=== PATIENT | male | born 1975 | race Caucasian/White ===

== ENCOUNTER 2016-10-03 12:12 | Outpatient (CLI) | payer BC ==
[2016-10-03 13:56] LABS: BASOPHILS % 0.5 (0.0-1.5); EOSINOPHILS % 2.5 % (0.0-6.8); MEAN CORPUSCULAR HEMOGLOBIN 31.6 pg (28.0-34.0); MONOCYTES # 0.3 # k/uL (0.0-0.9); MONOCYTES % 4.9 % (0.0-11.0); NEUTROPHILS # 4.1 # k/uL (1.4-7.7)
[2016-10-03 13:57] LABS: APPEARANCE,URINE Clear (CLEAR); COLOR,URINE Yellow (YELLOW); OCCULT BLOOD,URINE Negative (NEGATIVE); UROBILINOGEN URINE 0.2 Eu (0.2-1.0)
[2016-10-03 14:21] LABS: eGFR (African) > 60; eGFR (Non-African) > 60
[2016-10-04 01:10] LABS: TESTOSTERONE TOTAL 297.7 ng/dL (249.0-836.0)
--- NOTE | 2016-10-04 06:56 | Diagnostic Imaging Report ---
[facility] [id number] [address] ~ ~ ~ ~ Report Submission Date: Oct 03, 2016 3:12:27 PM [employer] Patient ~ Study Name: VIKTOR HERNANDEZ ~ Date: Oct 03, 2016 1:17:36 PM [employer] ~ Modality Type: US Gender: M ~ Description: US EXAM ABD BACK WALL : 77 ~ Institution: [facility] Physician JEFFERSON LLOYD ~ ~ ~ Ultrasound renal HISTORY: ~ Right flank pain, urgency, and dysuria FINDINGS: ~ The right kidney measures 10.2 x 5.6 x 6.3 cm and the left kidney 11.2 x 6.4 x 5.7 cm. ~Renal echogenicity and morphology is normal bilaterally. ~The urinary bladder exhibits normal contour and wall thickness. ~A small postvoid bladder residual is observed. ~ IMPRESSION: ~ Small postvoid bladder residual. ~Otherwise normal exam. ~ Electronically signed on Oct 03, 2016 3:12:27 PM [employer] by: Dannie HUA
--- NOTE | 2016-10-06 10:01 | CONSULTATION REPORT ---
CONSULTING PHYSICIAN: Frank Lees MD REASON FOR CONSULT: Cordell Hutson is a 40-year-old white male with an interesting and long history. It started 15 years ago when he developed a fever, rash, and joint and muscle pain. He was seen by Dr. Dave Kyle and was told he had Lyme disease and was treated. About 10 years ago, he developed a variety of symptoms consisting of fatigue, flu-like symptoms, muscle pain, nerve pain, and constant headaches. On one occasion, he was found to have an equivocal Pyle antibody of around 110. The reference, I believe, on that lab was between 100 and 200. MAGGY was 1:40. He has brought extensive records which I went through. His complement levels have been normal. He has not had any anemia or any renal insufficiency. He was put on Plaquenil with no benefit. He did complete a Phase III trial for a subcutaneous lupus drug. Anyway, he has moved up from [place] and he comes to see me as he is having some right flank pain. It is severe at night. If he urinates, it feels a little bit better. He has also noticed that his urine is a little foamy. He had called his tractor trailer moving van driver in [place] and he told him to go see a tractor trailer moving van driver. He has seen Dr. Aylin Camara, a local physician, a few months ago, but is unable to afford her since she does not take any insurance. He also has 1 copy of MTHFR mutation, otherwise, the rest of his studies were fairly unremarkable. I cannot find any labs pertaining to his Lyme disease. At present, he finds it difficult to work and apparently he is applying for disability. He suffers from fatigue, weakness, red eye, mouth sores, frequent sore throats, irregular heart beat, heart murmur, shortness of breath, swelling of the legs, persistent diarrhea, pain on burning on urination, cloudy smoky urine, nocturia, 24 hours of joint pain, muscle weakness, muscle tenderness, and joint swelling. He complains of redness and rash, sun sensitivity, headaches, dizziness, night sweats, anxiety, difficulty sleeping, and swollen tender lymph nodes. His weight has been stable. He has no dry eyes. He has had no difficulty swallowing. He has no history of pleurisy. He is presently not coughing, coughing up blood, or wheezing. He has had no nausea, vomiting, or diarrhea. No problems with jaundice. No dark stools or bloody stools. He has no color changes in the hands or feet in the cold. He has had no nodules or bumps. No hair loss. No tightness. He denied fainting, muscle spasms, loss of consciousness, memory loss, or problems with temper or depression. PAST MEDICAL HISTORY: The past medical history if related by the patient and includes: 1. Headaches. 2. One copy MTHFR mutation. 3. Lupus. 4. Lyme disease. 5. Hypothyroidism. 6. Vasculitis. 7. Neuropathy. 8. Chronic fatigue. 9. Degenerative disk disease. 10. Anxiety and depression. 11. Hypogonadism. PRESENT MEDICATIONS: Klonopin 1 mg twice a day for anxiety. He was taking Plaquenil 200 mg twice a day until about 2 months ago. He is no longer on testosterone supplementation. ALLERGIES: He has a drug allergy to penicillin which "makes him quit breathing." SOCIAL HISTORY: He does not smoke. He does not drink. He is and has 4 children. He works in construction. FAMILY HISTORY: Family history is negative from a rheumatological point of view. PREVIOUS PHYSICIANS: 1. Dr. Julio Quinonez [id number] [facility] [address], [place] [address] Frederick Zheng, [address] [place] [address] Hunter Kyle, [address] [place], [place] PHYSICAL EXAMINATION: General: On exam, he looks well. Vital Signs: Height: 6 feet. Weight: 218 pounds. T: 97.6, R: 18, heart rate is 75 and regular, BP: 139/89, oxygen saturation is 97% on room air. HEENT: No alopecia. No mal or rash. External ears and nose are unremarkable. No parotid swelling. No submental or cervical nodes. No thyroid enlargement. Lungs: Clear bilaterally with no crackles or wheezing. Heart: Regular rate and rhythm. No rubs or murmurs. Abdomen: Soft and nontender. He had no CVA tenderness to percussion. No spinal tenderness. Joints: No synovitis or deformities at the DIPs, PIPs, MCPs, wrists, elbows, shoulders, hips, knees, and feet. Capillary Exam: Showed no nailfold capillary dilatation or drop out. Review of his prior rheumatology records does not support lupus but more possibly undifferentiated connective tissue disorder. IMPRESSION: 1. History of lupus. We will reevaluate with [facility] testing. 2. Abnormal urine and flank pain. Check renal ultrasound, UA, and urine culture. 3. History of hypothyroidism. Check TSH. 4. History of hypogonadism. Check testosterone level. 5. Check CBC and CMP. I will give the patient a call with his results. Thank you very much. MELITA
== END 2016-10-03 12:13 ==
LOC: RHEU 12:12
PROVIDERS: ATTEND Internal Medicine
DX: M32.9 Systemic lupus erythematosus, unspecified (principal)
CPT/HCPCS: 36415; 76770; 80053; 81002; 84403; 84443; 85025; 87086; 99213

== ENCOUNTER 2017-09-02 09:56 | Outpatient (CLI) | payer OTHER | END 2017-09-02 09:57 | LOC: LAB 09:56 | PROVIDERS: ATTEND Colon & Rectal Surgery | DX: E21.0 Primary hyperparathyroidism (principal) | CPT/HCPCS: 36415; 82306; 82310; 82330; 83970 ==